=== PATIENT | female | born 1980 | race Caucasian/White ===

== ENCOUNTER → 2024-08-07 | Outpatient (CLI) | payer MEDICARE, SELFPAY ==
[2024-08-07 15:49] LABS: Collection Type, Urine Clean Catch
[2024-08-07 16:15] LABS: Basophils # (Auto) 0.1 Thou/mm3 (0.0-0.2); Basophils % (Auto) 1 % (0-2.5); Eosinophils # (Auto) 0.3 Thou/mm3 (0.0-0.5); Eosinophils % (Auto) 3 % (0-10); Hematocrit 44.9 % (36.0-46.0); Immature Granulocytes % (Auto) 0 % (0-0); Immature Granulocytes Auto 0.02 Thou/mm3 (0.00-0.00); Lymphocytes # (Auto) 2.5 Thou/mm3 (1.0-4.8); Lymphocytes % (Auto) 31 % (10-50); Mean Corpuscular HGB Conc 33.4 g/dl (31.0-37.0); Mean Corpuscular Hemoglobin 29.8 pg (25.0-35.0); Mean Corpuscular Volume 89 fL (80-100); Monocytes # (Auto) 0.8 Thou/mm3 (0.0-0.8); Monocytes % (Auto) 10 % (0-12); Neutrophils # (Auto) 4.3 Thou/mm3 (1.8-7.7); Neutrophils % (Auto) 54 % (37-80); Nucleated Red Blood Cell % 0 /100 WBC (0); Platelet Count 330 Thou/mm3 (140-440); Red Blood Count 5.03 Miln/mm3 (4.00-5.20)
[2024-08-07 16:38] LABS: Color,Urine Colorless (Lt Yel-Yel)
[2024-08-07 16:39] LABS: Bacteria,Urine Rare; Bilirubin,Urine Negative (Negative); Blood,Urine Negative (Negative); Clarity,Urine Clear (Clear/Hazy); Glucose, Urine Negative (Negative); Ketones,Urine Negative (Negative); Leukocyte Esterase,Urine Negative (Negative); Nitrite,Urine Negative (Negative); Protein,Urine Negative (Neg - Trace); RBC,Urine < 1 /hpf (0-3); Specific Gravity,Urine 1.008 (1.001-1.035); Squamous Epithelial Cell,Urine 1 /hpf (0-5); Urobilinogen,Urine Negative mg/dL (0.0-1.0); WBC,Urine < 1 /hpf (0-5)
[2024-08-07 16:46] LABS: Alanine Aminotransferase 16 U/L (10-49); Albumin, Serum 5.3 gm/dL (3.5-5.0); Albumin/Globulin Ratio 1.7 (1.2-2.2); Alkaline Phosphatase 76 U/L (46-116); Anion Gap 9 (7-16); Aspartate Amino Transferase 25 U/L (0-34); BUN/Creatinine Ratio 8 Ratio (12-20); Bilirubin,Total 0.5 mg/dL (0.3-1.2); Blood Urea Nitrogen 7 mg/dL (9-23); Calcium 10.5 mg/dL (8.3-10.6); Calcium (Corrected) 10.5 mg/dL (8.5-10.1); Carbon Dioxide 29.3 mMol/L (20.0-31.0); Chloride 107 mMol/L (98-107); Creatinine (Component) 0.9 mg/dL (0.6-1.3); Free T4 (Free Thyroxine) 1.17 ng/dL (0.89-1.76); Globulin 3.2 gm/dL (2.3-3.5); Glucose 85 mg/dL (74-106); Osmolality,Calculated 285 (275-295); Potassium 4.3 mMol/L (3.4-5.1); Sodium 145 mMol/L (136-145); Thyroid Stimulating Hormone 1.32 uIU/mL (0.55-4.78); Total Protein 8.5 gm/dL (5.7-8.2); eGFR > 60 See Note
[2024-08-08 02:05] LABS: Vitamin B12 579 pg/mL (211-911); Vitamin D 25 Hydroxy Total 23.2 ng/mL (7.3-40.2)
[2024-08-08 02:11] LABS: Carcinoembryonic Antigen 11.9 ng/mL (0.0-5.0)
[2024-08-13 06:54] LABS: CA 19-9 Antigen* 131 U/mL (<34)
== END | disposition home or self-care (01) ==
PROVIDERS: PCP Family Medicine; Referring Provider Family Medicine; Visit Provider Family Medicine
DX: Z00.00 Encounter for general adult medical examination without abnormal findings (principal); K90.9 Intestinal malabsorption, unspecified; K55.1 Chronic vascular disorders of intestine; M35.5 Multifocal fibrosclerosis; E55.9 Vitamin D deficiency, unspecified; R53.83 Other fatigue
CPT/HCPCS: 36415; 80053; 81001; 82306; 82378; 82607; 84439; 84443; 85025; 86301

== ENCOUNTER → 2024-11-26 | Outpatient (CLI) | payer MEDICARE, SELFPAY ==
[2024-11-26 14:51] LABS: Collection Type, Urine Clean Catch; RBC,Urine 0 /hpf (0-3); Squamous Epithelial Cell,Urine 0 /hpf (0-5)
[2024-11-26 16:39] LABS: Bilirubin,Urine Negative (Negative); Blood,Urine Negative (Negative); Clarity,Urine Clear (Clear/Hazy); Color,Urine Colorless (Lt Yel-Yel); Glucose, Urine Negative (Negative); Ketones,Urine Negative (Negative); Leukocyte Esterase,Urine Negative (Negative); Nitrite,Urine Negative (Negative); PH,Urine 7.5 (5.0-7.0); Protein,Urine Negative (Neg - Trace); Specific Gravity,Urine 1.006 (1.001-1.035); Urobilinogen,Urine Negative mg/dL (0.0-1.0); WBC,Urine < 1 /hpf (0-5)
== END | disposition home or self-care (01) ==
LOC: SLDO 14:24
PROVIDERS: PCP Family Medicine; Referring Provider Family Medicine; Visit Provider Family Medicine
DX: N30.00 Acute cystitis without hematuria (principal)
CPT/HCPCS: 81001; 87086

== ENCOUNTER 2025-05-05 10:35 | Outpatient (AMB) | payer MEDICARE, SELFPAY ==
[2025-05-05 10:52] VITALS: BP 121/77; PULSE 78; RESP 18; TEMP 36.3; O2SAT 97
--- NOTE | 2025-05-05 10:52 | GSCOFFNT_ITS ---
Vital Signs - [facility] 05/05/25 10:52 Height 1.63 m Height Method Measured Weight 52.787 kg Weight Measurement Method Standing Scale BMI 20.0 BP 121/77 Blood Pressure Source Automatic Cuff Blood Pressure Location Left Upper Arm Position Sitting Respiration 18 Pulse 78 Pulse Source Monitor Temp 97.4 F Temp Source Temporal Artery Scan Pulse Oximetry (%) 97 Oxygen Delivery Method Room Air Med/Allergies Allergies & Medications Allergies lactose Allergy (Verified 05/05/25 10:53) Medication Reconciliation cholestyramine-aspartame 4 gram oral powder (Cholestyramine Light) 4 g PO BID 04/04/18 [History Confirmed 05/05/25] hydrocodone 10 mg-acetaminophen 325 mg tablet ([place]) 1 tab PO BID 04/04/18 [History Confirmed 05/05/25] midodrine 2.5 mg tablet 2.5 mg PO BID 04/04/18 [History Confirmed 05/05/25] promethazine 25 mg/mL injection solution (Phenergan) 25 mg IV Q6H PRN Nausea 04/04/18 [History Confirmed 05/05/25] hydrocortisone 2.5 % topical cream with perineal applicator 1 applic FL QD-BID PRN hemorrhoids #30 grams 05/05/25 [Rx] MA Intake Visit Data Collection New Patient or Established: Established Patient (seen at [facility] within 3 years) Seen by Clinical Staff ONLY (RN/MA): No Reason for Visit:: REFERRAL HEMORRHOIDS Pain Present Currently: Yes Pain Scale Used: Mendez-Jaimes/[employer]ical [employer] [place] Cresylate Required: No PCP or OBGYN visit in last 3 months: Yes Hx Now: No Do You Feel Safe at Home: Yes Authorities Contacted: N/A Smoking Status Smoking Status: Smoker, status unknown (MARIJUANA) Immunization / Flu Flu Vaccine in the Last 12 Months: No Flu Vaccine Exclusion Criteria: Refused by Patient Past Medical History Past Medical History NEUROLOGIC: Positive Neurological Disorders and Meningitis CARDIAC: Positive Cardiac Disorders (picc line in the past), Heart Murmur and Hypotension; Negative Congestive Heart Failure RESPIRATORY: Negative Chronic Obstructive Pulmonary Disease (COPD) GASTROINTESTINAL: Positive Gastrointestinal Disorders (superior mesenteric artery syndrome surgery 2011), Gall Bladder Disease and Irritable Bowel GENITOURINARY: Negative Genitourinary Disorders or Renal Disease REPRODUCTIVE: Positive Previous Pregnancies () ENDOCRINE: Negative Endocrine Disorders, Diabetes Mellitus Type 1 or Diabetes Mellitus Type 2 HEMATOLOGIC: Negative Blood Disorders PSYCHO/SOCIAL: Positive Psychiatric Problems, Anxiety and Eating Disorder OTHER HISTORY: Positive Chicken Pox and Cervical Cancer (2008); Negative Autoimmune Disease Family History FAMILY HISTORY: Positive Family Psychiatric Problems (parents depression sister bipolar BPD) and Family Respiratory Disorders (mom unknown lung issues due to lupus); Negative Family Cardiac Disorders, Family Gastrointestinal Problems, Family Cancer, Family Surgery or Family Anesthesia Reaction Surgical History SURGICAL: Positive Abdominal Surgery (superior mesenteric artery syndrome surgery), Hysterectomy (2009) and Section Social History SMOKING STATUS: Smoking status: Smoker, status unknown (MARIJUANA) ALCOHOL: Alcohol Intake: Current HPI HPI Susana Juarez is a 44 yo female with an extensive past medical history most significant for SMA syndrome, short gut syndrome presenting to the clinic for evaluation for an external hemorrhoid by her PCP. She has experienced the hemorrhoid pain for about 1.5 years with BRBPR, and even a visit to the ED for profuse bleeding during one episode. She rates her pain at 7/10 resting and 10/10 when the hemorrhoid swells. She admits to fatigue, diarrhea, and constipation, occasional bilious and foul brown vomit that resembles stool, some stools being pencil-thin, and anorexia for which she attempts to self medicate with marijuana. She states that some of these symptoms may overlap with her lupus diagnosis. Her diet consists mostly of shakes that include some protein, fruits, and vegetables. She supplements her water intake with re-lyte and fiber with metamucil. She has attempted to treat the hemorrhoid with an unknown cream, and diet changes, but has not yet tried a sitz bath. She has attempted to have a colonoscopy in 2021 with a pill for bowel prep that caused her blood pressure to fall drastically and had a syncopal episode. Since this incident she expresses reluctance for any colonoscopies in the near future. Objective/Exam General Limitations: no limitations General Appearance: alert, cooperative, well groomed and anxious Resp Respiratory exam: Present normal lung sounds bilaterally Card Cardiovascular exam: Present regular rate, normal rhythm, +S1 and +S2; Absent systolic murmur, diastolic murmur, gallop or clicks Abdominal Abdominal exam: Present soft, normal bowel sounds and scar (c/d/i scars from various abdominal surgeries); Absent distention, tenderness or rigidity Rectal Rectal exam: Present hemorrhoids (external hemorrhoidal skin tag ) Assessment & Plan Diagnosis / Problem List (1) Hemorrhoids: Status: Acute Assessment & Plan: 44F with PMH of short gut syndrome, constipation and diarrhea, and various abdominal surgeries presents to the clinic for evaluation for intense hemorrhoid pain. Physical examination revealed external hemorrhoid. After discussion of hemorrhoid surgery, patient is more comfortable with attempting more conservative treatments before resorting to surgery. She has not yet tried a sitz bath or a definitive topical corticosteroid cream, so she will try these treatments and will follow-up in 6 weeks. Plan: Prescribe topical hydrocortisone and advised sitz bath for alleviation of discomfort. Follow-up in 6 weeks at outpatient clinic. Office Procedures GNS Level of Care Nursing/Assessment Patient Status: Established Patient Nursing Assessment/Reassesment: Medication Reconciliation, Update PMH in EMR and Vital Signs Coordination of Care: Complex Care and Chronic Disease 1-5, Education Complex Pt/Fam, Consent,records obtained, informed consent, Results/Orders obtained and Staff clarify orders Established Patient Charge Established Patient Point Assignment: 95 Established Patient Point Charge: EP Level 3 (80-115) Patient Portal Questionaires Social History Tobacco History Smoking Status: Smoker, status unknown (MARIJUANA) Alcohol History Alcohol Intake: Current Alcohol Intake Frequency Other:: twice a week Domestic Abuse History Do You Feel Safe at Home: Yes Review of Systems Report any current symptoms Only answer those that you have currently: Past Medical History Past Medical History Have you ever been diagnosed with any of the following: Neurological Problems Meningitis: Yes Cardiology Problems Heart Murmur: Yes Congestive Heart Failure: No Hypotension: Yes Respiratory Problems Chronic Obstructive Pulmonary Disease (COPD): No Stomache/Intestinal Problems Gall Bladder Disease: Yes Irritable Bowel: Yes Genital/Urinary Problems Renal Disease: No Reproductive Problems Previous Pregnancies: Yes () Endocrine Problems Diabetes Mellitus Type 1: No Diabetes Mellitus Type 2: No Psychologic Problems Anxiety: Yes Eating Disorder: Yes Other Problems Autoimmune Disease: No Chicken Pox: Yes Cervical Cancer: Yes (2007) Surgical History Hysterectomy: Yes (2008)
== END 2025-05-05 11:50 | disposition home or self-care (01) ==
LOC: HODSRG 10:35
PROVIDERS: PCP Family Medicine; Referring Provider Family Medicine; Supervising Provider Surgery; Visit Provider Surgery
DX: K64.4 Residual hemorrhoidal skin tags (principal)
CPT/HCPCS: 99213; G0463

== ENCOUNTER → 2025-06-16 | Outpatient (CLI) | payer MEDICARE, SELFPAY ==
[2025-06-16 13:54] LABS: Syphilis Nonreactive (Nonreactive)
[2025-06-16 14:15] LABS: Hepatitis A Antibody IgM Non Reactive (Non React); Hepatitis B Core Antibody IgM Non Reactive (Non React); Hepatitis B Surface Antigen Non Reactive (Non React); Hepatitis C Antibody Non Reactive (Non React)
[2025-06-16 14:26] LABS: Collection Type, Urine Clean Catch; RBC,Urine 0 /hpf (0-3)
[2025-06-16 14:34] LABS: HIV (1&2) Antibody Rapid Non-Reactive
[2025-06-16 17:13] LABS: Bacteria,Urine 2+; Bilirubin,Urine Negative (Negative); Blood,Urine Negative (Negative); Clarity,Urine Clear (Clear/Hazy); Glucose, Urine Negative (Negative); Ketones,Urine Negative (Negative); Leukocyte Esterase,Urine Negative (Negative); Nitrite,Urine Negative (Negative); PH,Urine 6.5 (5.0-7.0); Protein,Urine Negative (Neg - Trace); Specific Gravity,Urine 1.005 (1.001-1.035); Squamous Epithelial Cell,Urine 1 /hpf (0-5); Urobilinogen,Urine Negative mg/dL (0.0-1.0); WBC,Urine < 1 /hpf (0-5)
[2025-06-16 17:21] LABS: Color,Urine Lt-Yellow (Lt Yel-Yel)
[2025-06-17 12:13] LABS: Chlamydia trachomatis PCR Negative (Not Detect); Neisseria Gonorrhoeae DNA PCR Negative (Not Detect); Trichomonas Negative (Negative)
== END | disposition home or self-care (01) ==
PROVIDERS: PCP Family Medicine; Referring Provider Family Medicine; Visit Provider Family Medicine
DX: N30.00 Acute cystitis without hematuria (principal); Z20.2 Contact with and (suspected) exposure to infections with a predominantly sexual mode of transmission; Z11.3 Encounter for screening for infections with a predominantly sexual mode of transmission
CPT/HCPCS: 36415; 80074; 81001; 86703; 86780; 87077; 87086; 87186; 87491; 87591; 87661